=== PATIENT | female | born 1995 | race Caucasian/White ===

== ENCOUNTER 2019-05-04 18:33 | Emergency (ER) | payer SELFPAY ==
[2019-05-04 19:15] LABS: Absolute Lymphocytes (CBC) 0.8 K/uL (0.7-4.9); Basophils % 0.5 % (0-1.3); Hematocrit 32.6 % (36.0-45.0); Lymphocytes % 12.2 % (15.3-44.8); MPV 7.9 fL (7.6-11.3)
[2019-05-04 19:32] LABS: BUN Blood Urea Nitrogen 4 mg/dL (7-18); Bicarbonate 25 mmol/L (21-32); Glucose Level 117 mg/dL (74-106); Potassium 3.4 mmol/L (3.5-5.1); Sodium Level 144 mmol/L (136-145)
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
[2019-05-04 19:57] LABS: Anisocytosis 1+; Blood Morphology Comment NOTED (NOT SEEN); Platelet Estimate ADEQ; Urine White Blood Cell Casts OK
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
[2019-05-04] MEDS ORDERED: CEFTRIAXONE/SWI 1gm 1 GM/10 ML SYR ONE (20:11)
[2019-05-04 20:52] VITALS: TEMP 98
[2019-05-04 20:54] VITALS: BP 104/73; O2SAT 100
== END 2019-05-04 20:35 | disposition home or self-care (01) ==
LOC: ER 18:33
DX: S02.2XXA Fracture of nasal bones, initial encounter for closed fracture (principal); Y04.2XXA Assault by strike against or bumped into by another person, initial encounter; Y93.9 Activity, unspecified; Y92.89 Other specified places as the place of occurrence of the external cause
CPT/HCPCS: 36415; 70450; 70486; 70491; 76377; 80048; 85025; 96374; 99284; J0696; Q9967